=== PATIENT | male | born 1930 | race Caucasian/White ===

== ENCOUNTER 2018-03-05 12:53 | Emergency (ER) | payer MEDICARE, OTHER ==
[2018-03-05 13:39] LABS: CHLORIDE,CL 105 mmol/L (98-107); SODIUM,NA 139 mmol/L (136-145)
[2018-03-05] MEDS ORDERED: Iopamidol 755 Mg/ML 100 ML Bottle IVPUSH ONE (15:24)
--- NOTE | 2018-03-05 17:29 | EDM.PDOC ---
ED HPI GENERAL MEDICAL PROBLEM - General Chief Complaint: General Stated Complaint: Neurological Changes Time Seen by Provider: 03/05/18 12:58 Source of Information: Reports: Other (Notes from [facility] from recent visits, current observations by [facility] staff) History Limitations: Reports: Altered Mental Status (chronic baseline confusion) - History of Present Illness INITIAL COMMENTS - FREE TEXT/NARRATIVE: Patient sent here for evaluation due to [facility] staff feeling that he had mild left facial droop/left sided weakness. Also felt that he had increased baseline confusion today. No other reported changes told to us by their staff. Patient himself feels fine and has no complaint other than intermittent abdominal discomfort when asked if he has any pain. ROS performed and patient did not say yes to any other complaints during review. Vital signs stable. No reported changes in medications. [facility] contacted. Raeann saw patient at [facility] twice this month. First visit was due to several reported falls, no specific action required at that time. Second visit was around February 25 and was due to some lower lung rhonchi that were noted. Labs/xray performed, no acute intervention was reported as being required. CHF/COPD/Pulmonary fibrosis noted in Radiology report. It was noted by Raeann that patient was pleasantly confused, per usual when she visited with him. [facility] did not report any recent falls/cold symptoms/fevers/cough/GI changes/ changes. - Related Data Allergies Allergy/AdvReac Type Severity Reaction Status Date / Time rivaroxaban [From Xarelto] Allergy Cannot Verified 03/05/18 15:20 Remember Home Meds: Home Meds Magnesium Citrate [Citrate of Magnesia] 296 ml PO ASDIRECTED #1 solution [Rx] Past Medical History HEENT History: Reports: Cataract Cardiovascular History: Reports: Afib, Aneurysm (pseudoaneurysm left ventrical) , CAD, Heart Failure, High Cholesterol, Hypertension, [place], Other (See Below) ( chronic constrictive pericarditis,cardiomegaly) Respiratory History: Reports: COPD Gastrointestinal History: Reports: Chronic Constipation, GERD Genitourinary History: Reports: BPH Musculoskeletal History: Reports: Other (See Below) (generalized muscle weakness ) Psychiatric History: Reports: Anxiety, Dementia, Depression Endocrine/Metabolic History: Reports: Obesity/BMI 30+, Other (See Below) ( prediabetes) Hematologic History: Reports: Anemia, B12 Deficiency - Past Surgical History Musculoskeletal Surgical History: Reports: Knee Replacement - History Comment History Comment: No new medication changes. [facility]. Social & Family History - Family History Family Medical History: Noncontributory - Tobacco Use Smoking Status *Q: Former Smoker - Alcohol Use Alcohol Use History: No - Recreational Drug Use Recreational Drug Use: No Drug Use in Last 12 Months: No ED ROS GENERAL - Review of Systems Review Of Systems: Unable To Obtain (see HPI) ED EXAM, GENERAL - Physical Exam Exam: See Below Exam Limited By: No Limitations General Appearance: Alert, No Apparent Distress, Obese Eye Exam: Bilateral Eye: EOMI, PERRL Ears: Normal External Exam Nose: Normal Inspection Throat/Mouth: Normal Inspection, Normal Lips, Normal Voice, No Airway Compromise , Other (Upper dentures) Head: Atraumatic, Normocephalic Neck: Normal Inspection, Supple, Non-Tender, Full Range of Motion. No: Carotid Bruit, Lymphadenopathy (L), Lymphadenopathy (R) Respiratory/Chest: No Respiratory Distress, Lungs Clear, Normal Breath Sounds, No Accessory Muscle Use, Chest Non-Tender Cardiovascular: Irregularly Irregular Peripheral Pulses: 2+: Radial (L), Radial (R) GI/Abdominal: Normal Bowel Sounds, Soft, Other (mild discomfort per patient diffusely with palpation of abdomen). No: Rigid, Rebound (Male) Exam: Deferred Rectal (Males) Exam: Deferred Back Exam: No: CVA Tenderness (L), CVA Tenderness (R) Extremities: Non-Tender, Normal Capillary Refill, Pedal Edema (mild pedal edema) . No: Leg Pain, Increased Warmth Neurological: Alert, CN II-XII Intact, No Motor/Sensory Deficits (No identifiable motor/sensory deficits on exam. When patient motivated to move limbs/grasp he did appear to have equal strength bilaterally. No obvious drooping noted on facial exam), Confused. No: Sensory/Motor Deficit Psychiatric: Normal Affect, Normal Mood Skin Exam: Warm, Dry, Intact, Normal Color EKG INTERPRETATION EKG Date: 03/05/18 Time: 17:39 Rhythm: A-Fib Rate (Beats/Min): 88 [place]: Normal P-Wave: Absent QRS: Other (Normal duration) ST-T: Other (inverted Ts lateral leads) QT: Normal Comparison: NA - No Prior EKG Course - Vital Signs Last Recorded V/S: Last Vital Signs Temp 36.8 C 03/05/18 13:00 Pulse 84 03/05/18 15:15 Resp 19 03/05/18 15:15 BP 148/93 H 03/05/18 15:15 Pulse Ox 96 03/05/18 15:15 - Orders/Labs/Meds Orders: Active Orders 24 hr Category Date Time Status EKG Documentation Completion [RC] ASDIRECTED Care 03/05/18 17:38 Ordered Abdomen Series w Chest 1V [CR] Stat Exams 03/05/18 13:26 Taken Head wo Cont [CT] Routine Exams 03/05/18 12:58 Taken PE Chest [Ang Chest] [CT] Stat Exams 03/05/18 15:08 Taken PROLACTIN [REF] Stat Lab 03/05/18 13:05 Received Labs: Laboratory Tests 03/05/18 03/05/18 03/05/18 Range/Units 13:05 13:05 13:05 WBC 8.6 (4.0-10.2) K/uL RBC 3.41 L (4.33-5.41) M/uL Hgb 10.5 L (13.1-16.8) g/dL Hct 33.4 L (39.0-49.0) % MCV 97.9 D (84.0-98.0) fL MCH 30.8 (28.2-33.3) pg MCHC 31.4 L (31.7-36.0) g/dL RDW 14.9 H (11.2-14.1) % Plt Count 245 (150-350) K/uL Neut % (Auto) 71.7 (45.0-80.0) % Lymph % (Auto) 12.0 (10.0-50.0) % [place] % (Auto) 15.5 H (2.0-14.0) % Eos % (Auto) 0.5 (0.0-5.0) % Baso % (Auto) 0.3 (0.0-2.0) % Neut # (Auto) 6.16 (1.40-7.00) K/uL Lymph # (Auto) 1.03 (0.50-3.50) K/uL [place] # (Auto) 1.33 H (0.00-1.00) K/uL Eos # (Auto) 0.04 (0.00-0.50) K/uL Baso # (Auto) 0.03 (0.00-0.20) K/uL PT 14.1 H (9.8-11.7) SEC INR 1.3 APTT 27.3 (22.1-29.8) SEC D-Dimer, Quantitative (0-400) ng/mL Sodium 139 (136-145) mmol/L Potassium 3.8 (3.5-5.1) mmol/L Chloride 105 (98-107) mmol/L Carbon Dioxide 27.7 (21.0-32.0) mmol/L BUN 25 H (7-18) mg/dL Creatinine 1.24 H (0.51-1.17) mg/dL Est Cr Clr Drug Dosing TNP Estimated GFR (MDRD) 55 mL/min Glucose 104 (74-106) mg/dL Calcium 8.7 (8.5-10.1) mg/dL Magnesium 1.9 (1.8-2.4) mg/dL Total Bilirubin 1.0 (0.2-1.0) mg/dL AST 26 (15-37) U/L ALT 19 (12-78) U/L Alkaline Phosphatase 130 H (46-116) IU/L Creatine Kinase 60 (26-308) U/L Creatine Kinase Index 2.2 (0.0-2.5) % CK-MB (CK-2) 1.30 (0.00-3.60) ng/mL Troponin I 0.008 (0.000-0.056) ng/mL NT-Pro-B Natriuret Pep 3962 H (0-125) pg/mL Total Protein 8.0 (6.4-8.2) g/dL Albumin 2.5 L (3.4-5.0) g/dL Specimen Type Urine Color Urine Appearance Urine pH (5.0-9.0) Ur Specific [place] (1.005-1.030) Urine Protein (NEGATIVE) mg/dL Urine Glucose (UA) (NEGATIVE) mg/dL Urine Ketones (NEGATIVE) mg/dL Urine Occult Blood (NEGATIVE) Urine Nitrite (NEGATIVE) Urine Bilirubin (NEGATIVE) Urine Urobilinogen (0.2-1.0) E.U./dL Ur Leukocyte Esterase (NEGATIVE) Urine RBC /HPF Urine WBC /HPF Ur Epithelial Cells /LPF Urine Bacteria (NONE TO FEW) /HPF 03/05/18 03/05/18 Range/Units 13:05 14:00 WBC (4.0-10.2) K/uL RBC (4.33-5.41) M/uL Hgb (13.1-16.8) g/dL Hct (39.0-49.0) % MCV (84.0-98.0) fL MCH (28.2-33.3) pg MCHC (31.7-36.0) g/dL RDW (11.2-14.1) % Plt Count (150-350) K/uL Neut % (Auto) (45.0-80.0) % Lymph % (Auto) (10.0-50.0) % [place] % (Auto) (2.0-14.0) % Eos % (Auto) (0.0-5.0) % Baso % (Auto) (0.0-2.0) % Neut # (Auto) (1.40-7.00) K/uL Lymph # (Auto) (0.50-3.50) K/uL [place] # (Auto) (0.00-1.00) K/uL Eos # (Auto) (0.00-0.50) K/uL Baso # (Auto) (0.00-0.20) K/uL PT (9.8-11.7) SEC INR APTT (22.1-29.8) SEC D-Dimer, Quantitative 3240 H (0-400) ng/mL Sodium (136-145) mmol/L Potassium (3.5-5.1) mmol/L Chloride (98-107) mmol/L Carbon Dioxide (21.0-32.0) mmol/L BUN (7-18) mg/dL Creatinine (0.51-1.17) mg/dL Est Cr Clr Drug Dosing Estimated GFR (MDRD) mL/min Glucose (74-106) mg/dL Calcium (8.5-10.1) mg/dL Magnesium (1.8-2.4) mg/dL Total Bilirubin (0.2-1.0) mg/dL AST (15-37) U/L ALT (12-78) U/L Alkaline Phosphatase (46-116) IU/L Creatine Kinase (26-308) U/L Creatine Kinase Index (0.0-2.5) % CK-MB (CK-2) (0.00-3.60) ng/mL Troponin I (0.000-0.056) ng/mL NT-Pro-B Natriuret Pep (0-125) pg/mL Total Protein (6.4-8.2) g/dL Albumin (3.4-5.0) g/dL Specimen Type [place] Urine Color Yellow Urine Appearance Clear Urine pH 7.0 (5.0-9.0) Ur Specific [place] 1.020 (1.005-1.030) Urine Protein Trace H (NEGATIVE) mg/dL Urine Glucose (UA) Negative (NEGATIVE) mg/dL Urine Ketones Negative (NEGATIVE) mg/dL Urine Occult Blood Negative (NEGATIVE) Urine Nitrite Negative (NEGATIVE) Urine Bilirubin Negative (NEGATIVE) Urine Urobilinogen 2.0 H (0.2-1.0) E.U./dL Ur Leukocyte Esterase Negative (NEGATIVE) Urine RBC Not seen /HPF Urine WBC Not seen /HPF Ur Epithelial Cells Occasional /LPF Urine Bacteria Occasional (NONE TO FEW) /HPF Meds: Medications Discontinued Medications Generic Name Dose Route Start Last Admin Trade Name Freq PRN Reason Stop Dose Admin Iopamidol 100 ml 03/05/18 15:24 03/05/18 16:41 Isovue-370 (76%) IVPUSH 03/05/18 15:25 100 ml ONETIME ONE Administration - Radiology Interpretation Free Text/Narrative:: Head CT negative for acute changes such as hemorrhage. Subsequent PE study negative for PE. 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 No pneumonia noted. CT Results Date: 03/05/18 CT Results Time: 13:17 - Re-Assessments/Exams Free Text/Narrative Re-Assessment/Exam: 03/05/18 18:04 Exam unremarkable for identifiable focal neuro deficit. Patient continued to say that he felt well. Constipation noted on abdominal film. CT of head negative for acute bleed. Later PE study negative for PE. Normal WBC. Hgb 10.5 (patient has history of chronic anemia) DDimer 3240 and BNP 3962. Cr/BUN mildly above normal. UA normal. Patient may be experiencing general decline in cognitive function/baseline health given the issues that he has experienced over the past month. No acute infections identified at this time. Electrolytes stable. No medication changes indicated at this visit. Will have him return to [facility]. To be followed up by [facility] on next usp rounds. Will have staff given patient 1/2 bottle MagCitrate daily for the next few days to see if that helps promote a good bowel movement. Follow up otherwise as needed. Departure - Departure Time of Disposition: 17:57 Disposition: DC/Tfer to SNF 03 Condition: Good Clinical Impression: Chronic constipation - Discharge Information Prescriptions: Magnesium Citrate [Citrate of Magnesia] 296 ml PO ASDIRECTED #1 solution Referrals: PCP,Unknown [Primary Care Provider] - Forms: ED Department Discharge Additional Instructions: Have patient get followed up on next usp rounds. Watch for changes or any other new symptoms. See if Mag Citrate helps with his constipation (noted on xray today). Follow up otherwise as needed. - My Orders Last 24 Hours: My Active Orders 03/05/18 12:58 Head wo Cont [CT] Routine 03/05/18 13:05 PROLACTIN [REF] Stat 03/05/18 13:26 Abdomen Series w Chest 1V [CR] Stat 03/05/18 15:08 PE Chest [Ang Chest] [CT] Stat 03/05/18 17:38 EKG Documentation Completion [RC] ASDIRECTED - Assessment/Plan Last 24 Hours: My Active Orders 03/05/18 12:58 Head wo Cont [CT] Routine 03/05/18 13:05 PROLACTIN [REF] Stat 03/05/18 13:26 Abdomen Series w Chest 1V [CR] Stat 03/05/18 15:08 PE Chest [Ang Chest] [CT] Stat 03/05/18 17:38 EKG Documentation Completion [RC] ASDIRECTED
== END 2018-03-05 18:25 ==
LOC: LL.ED 12:53
DX: K59.09 Other constipation (principal); I11.0 Hypertensive heart disease with heart failure; I50.9 Heart failure, unspecified; I25.2 Old myocardial infarction; E78.00 Pure hypercholesterolemia, unspecified; Z88.8 Allergy status to other drugs, medicaments and biological substances; Z87.891 Personal history of nicotine dependence
CPT/HCPCS: 36415; 70450; 71275; 74022; 80053; 81001; 82550; 82553; 83735; 83880; 84146; 84484; 85025; 85379; 85610; 85730; 93005; 99285; Q9967

== ENCOUNTER 2018-03-18 11:16 | Emergency (ER) | payer MEDICARE, OTHER, MEDICAID ==
[2018-03-18 11:57] LABS: CHLORIDE,CL 104 mmol/L (98-107); SODIUM,NA 140 mmol/L (136-145)
--- NOTE | 2018-03-18 12:03 | EDM.PDOC ---
ED HPI GENERAL MEDICAL PROBLEM - General Chief Complaint: Respiratory Problem Stated Complaint: cough, decreased LOC Time Seen by Provider: 03/18/18 11:30 Source of Information: Reports: [facility] Records, RN Notes Reviewed History Limitations: Reports: Altered Mental Status - History of Present Illness INITIAL COMMENTS - FREE TEXT/NARRATIVE: Wm is a 87-year-old who presented to the ER from the [facility] with significant decrease in level of consciousness nurses at the ER and [facility] noted that for the past 2 weeks he has deteriorated significantly he is to walk with a walker responded to name but for the last 2 weeks he has just laid in bed we did notice multiple skin tears. Also noticed low-grade temp. 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 Lower Abdomen Pain Score (Numeric/FACES): 1 - Related Data Allergies Allergy/AdvReac Type Severity Reaction Status Date / Time rivaroxaban [From Xarelto] Allergy Cannot Verified 03/05/18 15:20 Remember Home Meds: Home Meds Acetaminophen 650 mg PO 1000 03/18/18 [History] Acetaminophen [Tylenol] 650 mg PO Q4H PRN 03/18/18 [History] Albuterol/Ipratropium [DuoNeb 3.0-0.5 MG/3 ML] 3 ml .XX QID 30 Days #120 neb 06/28 [Rx] Amoxicillin/Clavulanate K [Augmentin 875-125 MG] 1 tab PO BID 10 Days #20 tablet 03/18/18 [Rx] Aspirin 325 mg PO DAILY 03/18/18 [History] Bisacodyl 1 - 2 tab PO DAILY PRN 03/18/18 [History] Chlorthalidone 25 mg PO DAILY 03/18/18 [History] Cyanocobalamin (Vitamin B-12) [Vitamin B-12] 500 mcg PO DAILY 03/18/18 [History] Docusate Sodium [Colace] 100 mg PO DAILY 03/18/18 [History] Donepezil HCl 10 mg PO BEDTIME 03/18/18 [History] Ferrous Sulfate [Iron] 325 mg PO BID 03/18/18 [History] Finasteride [Proscar] 5 mg PO DAILY 03/18/18 [History] Furosemide [Lasix] 40 mg PO DAILY 30 Days #30 tab 03/18/18 [Rx] Ipratropium/Albuterol Sulfate [Iprat-Albut 0.5-3(2.5) mg/3 ml] 1 vial INH Q4H PRN 03/18/18 [History] Ipratropium/Albuterol Sulfate [Iprat-Albut 0.5-3(2.5) mg/3 ml] 1 vial INH QID [History] Memantine HCl [Namenda] 10 mg PO BID 03/18/18 [History] Methyl Salicylate/Menthol [Thera-Gesic Analgesic] 1 dose TOP DAILY 03/18/18 [ History] Metoprolol Succinate [Toprol Xl] 50 mg PO DAILY 03/18/18 [History] Omeprazole 20 mg PO DAILY 03/18/18 [History] PARoxetine HCl [Paroxetine HCl] 40 mg PO DAILY 03/18/18 [History] Potassium Chloride [Klor-Con M20] 20 meq PO BID 03/18/18 [History] Tolterodine Tartrate [Detrol LA] 4 mg PO DAILY 03/18/18 [History] atorvaSTATin [Lipitor] 20 mg PO DAILY 03/18/18 [History] guaiFENesin/Dextromethorphan [Tussin Dm Syrup] 10 ml PO Q4H PRN 03/18/18 [ History] Past Medical History HEENT History: Reports: Cataract Cardiovascular History: Reports: Afib, Aneurysm, CAD, Heart Failure, High Cholesterol, Hypertension, [place], Other (See Below) Respiratory History: Reports: COPD Gastrointestinal History: Reports: Chronic Constipation, GERD Genitourinary History: Reports: BPH Musculoskeletal History: Reports: Other (See Below) Psychiatric History: Reports: Anxiety, Dementia, Depression Endocrine/Metabolic History: Reports: Obesity/BMI 30+, Other (See Below) Hematologic History: Reports: Anemia, B12 Deficiency - Past Surgical History Musculoskeletal Surgical History: Reports: Knee Replacement - History Comment History Comment: No new medication changes. See [facility] for [facility]/ scheduling. Social & Family History - Family History Family Medical History: Noncontributory - Tobacco Use Smoking Status *Q: Unknown Ever Smoked ED ROS GENERAL - Review of Systems Review Of Systems: See Below Constitutional: Reports: Fever, Weakness HEENT: Reports: No Symptoms Respiratory: Reports: Cough Cardiovascular: Reports: No Symptoms Endocrine: Reports: No Symptoms GI/Abdominal: Reports: No Symptoms Musculoskeletal: Reports: No Symptoms Skin: Reports: Bruising, Other (Skin tears) ED EXAM, GENERAL - Physical Exam Exam: See Below Exam Limited By: Altered Mental Status General Appearance: WD/WN, No Apparent Distress Eye Exam: Bilateral Eye: EOMI, PERRL Ears: Normal External Exam, Normal Canal, Hearing Grossly Normal, Normal TMs Ear Exam: Bilateral Ear: Auricle Normal, Canal Normal, TM normal Nose: Normal Inspection, Normal Mucosa, No Blood Throat/Mouth: Normal Inspection, Normal Lips, Normal Teeth, Normal Gums, Normal Oropharynx, Normal Voice, No Airway Compromise Head: Atraumatic, Normocephalic Neck: Normal Inspection, Supple, Non-Tender, Full Range of Motion Respiratory/Chest: Decreased Breath Sounds, Stridor, Prolonged Expiration Cardiovascular: Normal Peripheral Pulses, Regular Rate, Rhythm, No Edema, No Gallop, No JVD, No Murmur, No Rub GI/Abdominal: Normal Bowel Sounds, Soft, Non-Tender, No Organomegaly, No Distention, No Abnormal Bruit, No Mass (Male) Exam: Deferred Rectal (Males) Exam: Deferred Back Exam: Normal Inspection, Full Range of Motion, NT Extremities: Normal Inspection, Normal Range of Motion, Non-Tender, Normal Capillary Refill, No Pedal Edema Neurological: Alert, Oriented, CN II-XII Intact, Normal Cognition, Normal Gait, Normal Reflexes, No Motor/Sensory Deficits Psychiatric: Flat Affect Skin Exam: Other (Multiple skin tears and abrasions) Course - Vital Signs Last Recorded V/S: Last Vital Signs Temp 98.1 F 03/18/18 12:00 Pulse 89 03/18/18 13:06 Resp 20 03/18/18 13:06 BP 139/87 03/18/18 13:06 Pulse Ox 100 03/18/18 13:06 - Orders/Labs/Meds Labs: Laboratory Tests 03/18/18 03/18/18 03/18/18 Range/Units 11:35 11:35 11:35 WBC 10.3 H (4.0-10.2) K/uL RBC 3.25 L (4.33-5.41) M/uL Hgb 9.8 L (13.1-16.8) g/dL Hct 31.4 L (39.0-49.0) % MCV 96.6 (84.0-98.0) fL MCH 30.2 (28.2-33.3) pg MCHC 31.2 L (31.7-36.0) g/dL RDW 14.7 H (11.2-14.1) % Plt Count 328 (150-350) K/uL Neut % (Auto) 75.1 (45.0-80.0) % Lymph % (Auto) 12.7 (10.0-50.0) % [place] % (Auto) 11.2 (2.0-14.0) % Eos % (Auto) 0.7 (0.0-5.0) % Baso % (Auto) 0.3 (0.0-2.0) % Neut # (Auto) 7.77 H (1.40-7.00) K/uL Lymph # (Auto) 1.31 (0.50-3.50) K/uL [place] # (Auto) 1.16 H (0.00-1.00) K/uL Eos # (Auto) 0.07 (0.00-0.50) K/uL Baso # (Auto) 0.03 (0.00-0.20) K/uL Sodium 140 (136-145) mmol/L Potassium 3.6 (3.5-5.1) mmol/L Chloride 104 (98-107) mmol/L Carbon Dioxide 28.8 (21.0-32.0) mmol/L BUN 24 H (7-18) mg/dL Creatinine 1.02 (0.51-1.17) mg/dL Est Cr Clr Drug Dosing TNP Estimated GFR (MDRD) > 60 mL/min Glucose 96 (74-106) mg/dL Lactic Acid 1.1 (0.4-2.0) mmol/L Calcium 8.6 (8.5-10.1) mg/dL Total Bilirubin 2.0 H (0.2-1.0) mg/dL AST 36 (15-37) U/L ALT 22 (12-78) U/L Alkaline Phosphatase 141 H (46-116) IU/L NT-Pro-B Natriuret Pep (0-125) pg/mL Total Protein 8.2 (6.4-8.2) g/dL Albumin 2.2 L (3.4-5.0) g/dL 03/18/18 Range/Units 11:55 WBC (4.0-10.2) K/uL RBC (4.33-5.41) M/uL Hgb (13.1-16.8) g/dL Hct (39.0-49.0) % MCV (84.0-98.0) fL MCH (28.2-33.3) pg MCHC (31.7-36.0) g/dL RDW (11.2-14.1) % Plt Count (150-350) K/uL Neut % (Auto) (45.0-80.0) % Lymph % (Auto) (10.0-50.0) % [place] % (Auto) (2.0-14.0) % Eos % (Auto) (0.0-5.0) % Baso % (Auto) (0.0-2.0) % Neut # (Auto) (1.40-7.00) K/uL Lymph # (Auto) (0.50-3.50) K/uL [place] # (Auto) (0.00-1.00) K/uL Eos # (Auto) (0.00-0.50) K/uL Baso # (Auto) (0.00-0.20) K/uL Sodium (136-145) mmol/L Potassium (3.5-5.1) mmol/L Chloride (98-107) mmol/L Carbon Dioxide (21.0-32.0) mmol/L BUN (7-18) mg/dL Creatinine (0.51-1.17) mg/dL Est Cr Clr Drug Dosing Estimated GFR (MDRD) mL/min Glucose (74-106) mg/dL Lactic Acid (0.4-2.0) mmol/L Calcium (8.5-10.1) mg/dL Total Bilirubin (0.2-1.0) mg/dL AST (15-37) U/L ALT (12-78) U/L Alkaline Phosphatase (46-116) IU/L NT-Pro-B Natriuret Pep 3808 H (0-125) pg/mL Total Protein (6.4-8.2) g/dL Albumin (3.4-5.0) g/dL Meds: Medications Discontinued Medications Generic Name Dose Route Start Last Admin Trade Name Maria E PRN Reason Stop Dose Admin Albuterol/Ipratropium 3 ml 03/18/18 12:40 03/18/18 12:46 Duoneb 3.0-0.5 Mg/3 Ml NEB 03/18/18 12:41 3 ml ONETIME ONE Administration Furosemide 40 mg 03/18/18 12:42 03/18/18 12:46 Lasix IVPUSH 03/18/18 12:43 40 mg NOW ONE Administration Departure - Departure Time of Disposition: 12:49 Disposition: DC/Tfer to [facility] Condition: Poor 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 Pneumonia Qualifiers: Pneumonia type: due to unspecified organism Laterality: left Lung location: lower lobe of lung Qualified Code(s): J18.1 - Lobar pneumonia, unspecified organism - Discharge Information Prescriptions: Albuterol/Ipratropium [DuoNeb 3.0-0.5 MG/3 ML] 3 ml .XX QID 30 Days #120 neb Amoxicillin/Clavulanate K [Augmentin 875-125 MG] 1 tab PO BID 10 Days #20 tablet Furosemide [Lasix] 40 mg PO DAILY 30 Days #30 tab Referrals: PCP,Unknown [Primary Care Provider] - Forms: ED Department Discharge Care Plan Goals: Patient was examined x-ray revealed cardiomegaly with possible left effusion secondary to congestive heart failure and small infiltrate I will go ahead and start him on antibiotics and at the reticulocyte and duo nebs to see if he improves at the [facility] they should speak to the and explained the situation so that she can make some decisions if to place him on hospice for end -of-life care I would like to give this plan a chance to see if he improves. Augmentin 875 mg twice a day 10 days Lasix 40 mg by mouth daily Duo nebs every 6 hours for 30 days
[2018-03-18] MEDS ORDERED: Albuterol/Ipratropium 3.0-0.5 MG/3 ML Neb Soln NEB ONE (12:40)
[2018-03-18] MEDS ORDERED: Furosemide 40 MG/4 ML VIAL IVPUSH ONE (12:42)
== END 2018-03-18 13:55 ==
LOC: LL.ED 11:16
DX: J18.9 Pneumonia, unspecified organism (principal); Q24.9 Congenital malformation of heart, unspecified; I11.0 Hypertensive heart disease with heart failure; I50.9 Heart failure, unspecified; E78.00 Pure hypercholesterolemia, unspecified; Z88.8 Allergy status to other drugs, medicaments and biological substances; Z79.899 Other long term (current) drug therapy; Z79.82 Long term (current) use of aspirin
CPT/HCPCS: 36415; 71045; 80053; 83605; 83880; 85025; 87040; 87070; 87077; 87186; 87205; 94640; 96374; 99285; J1940; 99283